=== PATIENT | male | born 1960 | race African-American/Black ===

== ENCOUNTER → 2016-11-10 | Outpatient (CLI) | payer BC, OTHER ==
[~2016-11-10] MED LIST: EC-NAPROSYN500 MG PO; NORCO 325 MG-51 TAB PO; PRIL40 PO
== END ==
LOC: COL.RAD 10:12
DX: K76.0 Fatty (change of) liver, not elsewhere classified (principal); N28.1 Cyst of kidney, acquired; R16.1 Splenomegaly, not elsewhere classified; R10.84 Generalized abdominal pain; K44.9 Diaphragmatic hernia without obstruction or gangrene
CPT/HCPCS: Q9967

== ENCOUNTER 2017-10-28 20:54 | Emergency (ER) | payer BC, OTHER ==
[~2017-10-28] VITALS: Ht 182.9 cm; Wt 88.6 kg
[2017-10-28 20:58] VITALS: BP 145/84; TEMP 99.5
[2017-10-28 21:34] LABS: BASO % 0.5 % (0.0-2.0); EOS # 0.2 (0.0-0.7); GRAN # 4.7 (1.4-6.5); GRAN % 63.1 % (42.2-75.2); HEMATOCRIT 44.3 % (42.0-52.0); HEMOGLOBIN 14.5 g/dl (13.5-18.0); LYMPH # 1.2 (1.2-3.4); LYMPH % 15.6 % (20.0-51.0); MEAN CELL VOLUME 83 fl (80.0-100.0); MEAN CORPUSCULAR HEMOGLOBIN 27 pg (27.0-31.0); MEAN CORPUSCULAR HGB CONC 33 g/dl (33.0-37.0); MEAN PLATELET VOLUME 11.2 fl (7.4-10.4); MONO # 1.3 (0.1-0.6); MONO % 17.3 % (1.7-9.3); PLATELET COUNT 130 K/mm3 (130-400); RED BLOOD COUNT 5.36 M/mm3 (4.20-5.60); WHITE BLOOD COUNT 7.4 K/mm3 (4.8-10.8)
[2017-10-28 21:44] LABS: ADJUSTED CALCIUM 8.7 mg/dL (8.4-10.2); ALBUMIN 4.1 gm/dL (3.5-5.0); BILIRUBIN,TOTAL 0.6 mg/dL (0.0-1.0); CALCIUM 8.8 mg/dL (8.4-10.2); CREATININE, serum 1.27 mg/dL (0.66-1.25); POTASSIUM 3.9 mmol/L (3.4-5.0)
[2017-10-28 21:51] LABS: INFLUENZA A POSITIVE; INFLUENZA B NEGATIVE
[2017-10-28] MEDS ORDERED: TAMIFLU 75MG75 MG PO (22:40)
[2017-10-28 23:15] VITALS: PULSE 80
== END 2017-10-28 23:16 | disposition home or self-care (01) ==
LOC: COL.ER 20:54
PROVIDERS: Emergency Medicine
DX: J09.X2 Influenza due to identified novel influenza A virus with other respiratory manifestations (principal); E11.9 Type 2 diabetes mellitus without complications
CPT/HCPCS: J1200; J1885; J2765; J3010; J7030

== ENCOUNTER 2019-05-29 12:42 | Emergency (ER) | payer BC, OTHER ==
[~2019-05-29] VITALS: Ht 182.9 cm; Wt 86.8 kg
[~2019-05-29 12:42] MED LIST changes: +TAMIFLU 75MG75 MG PO
[2019-05-29 12:48] VITALS: TEMP 97.5
[2019-05-29] MEDS ORDERED: GLUCOPHAGE XR500 M1 PO (13:29)
[2019-05-29 13:54] LABS: BASO # 0.1 (0.0-0.2); BASO % 0.8 % (0.0-2.0); EOS # 0.3 (0.0-0.7); EOS % 3.5 % (0-4.0); GRAN # 4.9 (1.4-6.5); GRAN % 61.8 % (42.2-75.2); HEMATOCRIT 50.5 % (42.0-52.0); HEMOGLOBIN 16.2 g/dl (13.5-18.0); LYMPH % 24.7 % (20.0-51.0); MEAN CELL VOLUME 84 fl (80.0-100.0); MEAN CORPUSCULAR HEMOGLOBIN 27 pg (27.0-31.0); MEAN CORPUSCULAR HGB CONC 32 g/dl (33.0-37.0); MONO # 0.7 (0.1-0.6); MONO % 8.7 % (1.7-9.3); PLATELET COUNT 175 K/mm3 (130-400); RED BLOOD COUNT 6.04 M/mm3 (4.20-5.60); REDCELL DISTRIBUTION WIDTH-CV 13.4 % (11.5-14.5)
[2019-05-29 14:00] LABS: COLLECTION METHOD CLEAN CATCH
[2019-05-29 14:09] LABS: ALBUMIN 4.4 gm/dL (3.5-5.0); BILIRUBIN,TOTAL 0.6 mg/dL (0.0-1.0); CALCIUM 9.6 mg/dL (8.4-10.2); CREATININE, serum 0.92 (0.66-1.25); POTASSIUM 4.3 mmol/L (3.4-5.0); TOTAL PROTEIN 7.6 gm/dL (6.4-8.2)
[2019-05-29 14:09] LABS: PH 6 (5-8); SQUAMOUS EPITHELIAL 0-2 /hpf; URINE APPEARANCE Clear; URINE BACTERIA None Seen /hpf; URINE BILIRUBIN Negative (NEGATIVE); URINE BLOOD Negative (NEGATIVE); URINE COLOR Yellow; URINE GLUCOSE Negative (NEGATIVE); URINE KETONE Negative (NEGATIVE); URINE LEUKOCYTE ESTERASE Negative (NEGATIVE); URINE NITRATE Negative (NEGATIVE); URINE PROTEIN(semi-quant) Negative (NEGATIVE); URINE RBC None Seen /hpf; URINE UROBILINOGEN Negative (NEGATIVE)
[2019-05-29 14:18] LABS: C-REACTIVE PROTEIN 0.5 mg/dL (0.0-0.9)
[2019-05-29 15:09] VITALS: BP 145/99; PULSE 64
== END 2019-05-29 15:11 | disposition home or self-care (01) ==
LOC: COL.ER 12:42
PROVIDERS: Family Medicine
DX: G89.29 Other chronic pain (principal); R10.12 Left upper quadrant pain; E11.9 Type 2 diabetes mellitus without complications; Z79.84 Long term (current) use of oral hypoglycemic drugs
CPT/HCPCS: J2405; J7030; Q9967

== ENCOUNTER 2019-11-18 05:23 | Emergency (ER) | payer BC, OTHER ==
[~2019-11-18] VITALS: Ht 182.9 cm; Wt 86.4 kg
[~2019-11-18 05:23] MED LIST changes: +GLUCOPHAGE XR500 M1 PO
[2019-11-18 05:31] VITALS: TEMP 97.9
[2019-11-18 05:54] LABS: BASO # 0.1 (0.0-0.2); BASO % 0.7 % (0.0-2.0); EOS # 0.2 (0.0-0.7); EOS % 2.8 % (0-4.0); GRAN # 3.8 (1.4-6.5); GRAN % 55.9 % (42.2-75.2); HEMATOCRIT 47.9 % (42.0-52.0); HEMOGLOBIN 15.4 g/dl (13.5-18.0); LYMPH # 2.1 (1.2-3.4); LYMPH % 30.6 % (20.0-51.0); MEAN CELL VOLUME 84 fl (80.0-100.0); MEAN CORPUSCULAR HEMOGLOBIN 27 pg (27.0-31.0); MEAN CORPUSCULAR HGB CONC 32 g/dl (33.0-37.0); MEAN PLATELET VOLUME 10.5 fl (7.4-10.4); MONO # 0.7 (0.1-0.6); MONO % 9.9 % (1.7-9.3); PLATELET COUNT 179 K/mm3 (130-400); RED BLOOD COUNT 5.71 M/mm3 (4.20-5.60); REDCELL DISTRIBUTION WIDTH-CV 13.1 % (11.5-14.5)
[2019-11-18] MEDS ORDERED: TRULICITY0.75 MG/0. SQ (05:58)
[2019-11-18 06:03] LABS: ALANINE AMINOTRANSFERASE 43 U/L (21-72); ALBUMIN 4.4 gm/dL (3.5-5.0); ALKALINE PHOSPHATASE 50 U/L (50-136); ANION GAP 9 mmol/L (7-16); AST,SGOT 23 U/L (15-37); BILIRUBIN,TOTAL 0.6 mg/dL (0.0-1.0); BLOOD UREA NITROGEN 16 mg/dL (9-20); CALCIUM 8.9 mg/dL (8.4-10.2); CARBON DIOXIDE 24 mmol/L (22-30); CHLORIDE 106 mmol/L (98-107); CREATININE, serum 1.03 (0.66-1.25); GLUCOSE 123 mg/dL (74-106); POTASSIUM 3.9 mmol/L (3.4-5.0); SODIUM 140 mmol/L (137-145); TOTAL PROTEIN 7.1 gm/dL (6.4-8.2)
[2019-11-18 06:23] LABS: TROPONIN-I < 0.012 ng/mL (0.000-0.035)
[2019-11-18] MEDS ORDERED: FLEXERIL 1010 MG/TAB PO (07:54)
[2019-11-18 08:25] VITALS: BP 143/105; PULSE 68
== END 2019-11-18 08:25 | disposition home or self-care (01) ==
LOC: COL.ER 05:23
PROVIDERS: Emergency Medicine
DX: R00.2 Palpitations (principal); R20.2 Paresthesia of skin; E11.9 Type 2 diabetes mellitus without complications; Z79.84 Long term (current) use of oral hypoglycemic drugs
CPT/HCPCS: J1885; J7030

== ENCOUNTER 2022-06-20 08:28 | Emergency (ER) | payer BC, OTHER ==
[~2022-06-20] VITALS: Ht 182.9 cm; Wt 86.4 kg
[~2022-06-20 08:28] MED LIST changes: +FLEXERIL 1010 MG/TAB PO; +TRULICITY0.75 MG/0. SQ
[2022-06-20 08:34] VITALS: TEMP 97.3
[2022-06-20] MEDS ORDERED: JANUVIA 100MG100 MG PO (08:39)
[2022-06-20] MEDS ORDERED: JANUVIA25 MG PO (08:39)
[2022-06-20 08:46] LABS: BASO # 0.1 K/mm3 (0.0-0.2); BASO % 1.2 % (0.0-2.0); EOS # 0.3 K/mm3 (0.0-0.7); EOS % 3.7 % (0.0-4.0); GRAN # 4.1 K/mm3 (1.4-6.5); GRAN % 55.3 % (42.2-75.2); HEMATOCRIT 47.4 % (42.0-52.0); HEMOGLOBIN 15.5 g/dl (13.5-18.0); LYMPH # 2.3 K/mm3 (1.2-3.4); LYMPH % 30.1 % (20.0-51.0); MEAN CELL VOLUME 83 fl (80.0-100.0); MEAN CORPUSCULAR HEMOGLOBIN 27 pg (27-31); MEAN CORPUSCULAR HGB CONC 33 g/dl (33.0-37.0); MEAN PLATELET VOLUME 11.1 fl (7.4-10.4); MONO # 0.7 K/mm3 (0.1-0.6); MONO % 9.3 % (1.7-9.3); PLATELET COUNT 180 K/mm3 (130-400); RED BLOOD COUNT 5.73 M/mm3 (4.20-5.60); REDCELL DISTRIBUTION WIDTH-CV 13.6 % (11.5-14.5)
[2022-06-20 09:04] LABS: ALANINE AMINOTRANSFERASE 22 U/L (0-55); ALBUMIN 4.2 gm/dL (3.4-4.8); ALKALINE PHOSPHATASE 41 U/L (40-150); ANION GAP 9 mmol/L (7-16); AST,SGOT 17 U/L (5-34); BLOOD UREA NITROGEN 16 mg/dL (8-26); CALCIUM 9.3 mg/dL (8.4-10.2); CARBON DIOXIDE 22 mmol/L (23-31); CHLORIDE 110 mmol/L (98-107); GLUCOSE 116 mg/dL (70-99); POTASSIUM 4.2 mmol/L (3.5-4.5); SODIUM 141 mmol/L (136-145); TOTAL PROTEIN 7.1 gm/dL (6.2-8.1)
[2022-06-20 09:10] LABS: TROPONIN-I < 0.010 ng/mL (0.00-0.033)
[2022-06-20 09:59] VITALS: BP 138/87; PULSE 49
== END 2022-06-20 10:18 | disposition home or self-care (01) ==
LOC: COL.ER 08:28
PROVIDERS: Family Medicine
DX: M79.602 Pain in left arm (principal)